=== PATIENT | male | born 1965 | race Caucasian/White ===

== ENCOUNTER 2019-08-11 11:47 | Outpatient (CLI) | payer OTHER ==
[~2019-08-11 11:47] MED LIST: AMLO5TAB PO; ATOR20TA PO; CHOL100046 PO; LOSA25TA96 PO; OMEG100T PO
== END 2019-08-11 23:59 | disposition home or self-care (01) ==
LOC: CARD DIAG 11:47
PROVIDERS: ATTEND Orthopaedic Surgery
DX: I08.0 Rheumatic disorders of both mitral and aortic valves (principal); I10 Essential (primary) hypertension; Z95.0 Presence of cardiac pacemaker
CPT/HCPCS: 93005; 93306